=== PATIENT | male | born 1980 | race Caucasian/White ===

== ENCOUNTER 2017-05-19 10:00 | Outpatient (RCR) | payer MEDICARE, MEDICAID, SELFPAY ==
[2017-05-05 10:07] VITALS: BP 120/70; PULSE 67; RESP 18; TEMP 36.4; BMI 16.7
--- NOTE | 2017-05-05 12:07 | HP.PCM_ITS ---
(1) Autism Status: Acute Current Visit: Yes Code(s): F84.0 - Autistic disorder (2) Parkinson's disease (tremor, stiffness, slow motion, unstable posture) Status: Acute Current Visit: Yes Code(s): G20 - Parkinson's disease (3) Ataxia Status: Acute Current Visit: Yes Code(s): R27.0 - Ataxia, unspecified (4) Decubitus ulcer, stage 3 with infection Status: Acute Current Visit: Yes Code(s): L89.93 - Pressure ulcer of unspecified site, stage 3; L08.9 - Local infection of the skin and subcutaneous tissue, unspecified History of Present Illness Date of Service: 05/05/17 Chief Complaint: Follow-up on a sacral decubitus ulcer History of Wound: 37-year-old white male with a history of Parkinson's and possibly autism or that spectrum was seen by his family doctor Dr. Robyn Manjarrez in the last 2 days. Patient was referred from her about a open ulcer on his coccyx. Family has not been doing anything but what Dr. Manjarrez told him to do. Patient does speak but very difficult to understand. Does like playing on computers. Mom states does not use a Roho cushion or low air loss mattress. Patient usually she says sits in his sling wheelchair or on the floor are in his lounge chair. She is currently on medications for for Parkinson's. Patient has had a weight loss of 30 pounds in the last 2 years. He is very bony over his hips elbows and pelvis Past Medical History Past Medical History: Parkinson's questionable autistic spectrum decubitus ulcer stage III coccyx Lives: With Family Smoking Status: Never smoker Tobacco Use: Non-smoker Alcohol: None Drugs: None Review of Systems Constitutional: Denies: Chills, Fever Eyes: Denies: Blurred vision, Drainage, Pain HEENT: Denies: Difficulty Hearing, Difficulty Swallowing, Sore Throat, Visual Changes Cardiovascular: Denies: Chest Pain, Palpitations, Syncope Respiratory: Denies: Cough, Shortness of Breath Gastrointestinal: Denies: Abdominal Pain, Nausea, Vomiting Genitourinary: Denies: Dysuria, Frequency Musculoskeletal: Denies: Joint Pain, Muscle pain Skin: Reports: Wounds - Coccyx wounds, -. Denies: Jaundice, Rash Neurological: Denies: Balance problems, Change in Speech, Difficulty swallowing , Focal weakness Psychiatric: Denies: Anxiety, Depression Endocrine: Denies: Change in Body Habitus Hematologic/ Lymphatic: Denies: Adenopathy - Physical Exam Vital Signs Temp Pulse Resp BP 97.5 F L 67 18 120/70 05/05/17 10:07 05/05/17 10:07 05/05/17 10:07 05/05/17 10:07 General: Oriented x3, Cooperative, Well developed HEENT: Atraumatic, PERRLA Oral: Moist Mucosa Neck: Supple, No JVD Lungs: Clear to auscultation, Normal air movement Cardiovascular: Regular rate, Regular Rhythm Abdomen: Bowel Sounds Present, Soft, Non Tender, No Hepato-splenomegaly Extremities: No clubbing, No edema Skin: - - Coccyx decubitus ulcer stage III Wound Measurements and Assessment WC - Nurse 1 - General Ulcer Measurement Start: 05/05/17 10:07 Freq: Status: Active Protocol: Activity Type Activity Date Activity User E-Sign Co-Sign Detail Recorded Client Recorded Date Recorded By Document 05/05/17 10:07 DV [id number] 05/05/17 10:50 DV 05/05/17 10:07 Wound Center Nurse 1 [Ulcer Assessment Protocol: WC.WD.LOC] #1 Right Sacrum -Combined with other wound No -Current Size (cm) - Length 2.0 -Current Size (cm) - Width 1.5 -Current Size (cm) - Depth 0.3 -Total Square Cm 3.00 -Date of Last Picture (Recall this 05/05/17 field) -Photo Taken Yes -Epithelialization None Present -Tunneling No -Undermining/Tunneling No -Circular Undermining No -Classification - Thickness Full Thickness without Exposed Support Structure -Exudate Amt Small (1-33%) -Exudate Type Serosanguineous -Wound Margin Distinct, Outline Attached -Granulation Quality N/A -Slough/Fibrin No -Necrosis Amt Large (67-100%) -Necrotic Tissue Type Adherent Slough -Structure Exposed None/Limited to Skin Breakdown -Texture (Fany-wound Skin Appearance) No Abnormality Assessed -Moisture (Fany-wound Skin Appearance No Abnormality ) Assessed -Color (Fany-wound Skin Appearance) No Abnormality Assessed -Temperature (Fany-wound Skin No Abnormality Appearance) (Pt Warm) -Tenderness on Palpation (Fany-wound Yes: slightly Skin Appearance) -Ulcer Cleansing Rinsed/ Irrigated with Saline -Foul Odor after Cleansing No -Anesthetic Used 5% Lidocaine Gel WC - Nurse 2 - General Ulcer CM Notes Start: 05/05/17 10:07 Freq: Status: Active Protocol: Activity Type Activity Date Activity User E-Sign Co-Sign Detail Recorded Client Recorded Date Recorded By Document 05/05/17 11:19 MW [id number] 05/05/17 11:30 MW 05/05/17 11:19 Wound Center Nurse 2 [Procedure/Treatment] -Time 11:19 -Correct Patient Yes -Correct Side, Site, Position Yes -Correct Procedure Yes -Procedure Performed Yes -Type of Procedure Debridement -Clinical Debridement Subcutaneous -Post Debridement Size (cm) - Length 1.7 -Post Debridement Size (cm) - Width 1.5 -Post Debridement Size (cm) - Depth 0.2 -Total Square Cm 2.55 -Wound/Ulcer Outcome Not Healed -Ulcer Cleansing Rinsed/ Irrigated with Saline -Foul Odor after Cleansing No -Bioengineered Tissue No -Cetacaine [place] No -Bleeding Controlled with Pressure -Treatment Response Procedure Tolerated Well [See Physician Procedure note for Specifics] Pain Scale: 0-10 Numeric [Pain] -Is Patient Pain Free? Yes Musculoskeletal: No Tenderness to Palpation of Joints or Extremities Lymphatic: No Cervical, Supraclavicular, or Inguinal Adenopathy Neurological: Cranial nerves II-XII grossly intact, Neuro grossly intact Psych/Mental Status: Normal Affect, Appropriate Debridement Note Post-Debridement Measurements/Treatment WC - Nurse 2 - General Ulcer CM Notes Start: 05/05/17 10:07 Freq: Status: Active Protocol: Activity Type Activity Date Activity User E-Sign Co-Sign Detail Recorded Client Recorded Date Recorded By Document 05/05/17 11:19 MW [id number] 05/05/17 11:30 MW 05/05/17 11:19 Wound Center Nurse 2 #1 Right Sacrum -Time 11:19 -Correct Patient Yes -Correct Side, Site, Position Yes -Correct Procedure Yes -Procedure Performed Yes -Type of Procedure Debridement -Clinical Debridement Subcutaneous -Post Debridement Size (cm) - Length 1.7 -Post Debridement Size (cm) - Width 1.5 -Post Debridement Size (cm) - Depth 0.2 -Total Square Cm 2.55 -Wound/Ulcer Outcome Not Healed -Ulcer Cleansing Rinsed/ Irrigated with Saline -Foul Odor after Cleansing No -Bioengineered Tissue No -Cetacaine [place] No -Bleeding Controlled with Pressure -Treatment Response Procedure Tolerated Well Pain Scale: 0-10 Numeric Is Patient Pain Free? Yes Wound debrided: Coccyx ulcer Wound Grade/Stage: Stage III Type of Debridement: Excisional debridement Anesthesia Used: 5% Lidocaine Gel Depth: Down to and including healthy tissue, in the subcutaneous layer Instrument Used: 3mm curette, - - Uppers Tissue Removed: Slough and fibrin and devitalized tissue Severity: Limited To Skin Breakdown Amount of bleeding with debridement: Mild Bleeding Controlled with: Compression and gauze Patient tolerated procedure well Assessment/Plan Lab work CBC with differential and a pre-albumin Active Problems Autism (Acute) Parkinson's disease (tremor, stiffness, slow motion, unstable posture) (Acute) Ataxia (Acute) Decubitus ulcer, stage 3 with infection (Acute) Assessment: Decubitus ulcer stage III coccyx. Parkinson's. Malnutrition. Infected ulcer. Possibly autistic Plan: Wash area with Hibiclens. Apply Aquacel silver to the area moistened. Cover with gauze and tape. Follow-up in 1 week. Obtain Roho cushion and low air mattress
[2017-05-05 15:46] LABS: Absolute Lymphocyte Count 1.27 X10^3/ul (0.83-4.51); Absolute Neutrophil Count 3.6 X10^3/uL (2.0-7.7); Basophil# 0.01 X10^3/uL; Basophil% 0.2 % (0-1); Eosinophil# 0.06 X10^3/uL; Eosinophils% 1.1 % (0-5); Hematocrit 40.9 % (40-54); Hemoglobin 13.2 g/dl (13.0-16.5); Lymphocyte # 1.27 X10^3/ul (4.0); Lymphocyte % 23.1 % (19-41); Mean Corp Hgb Conc 32.3 g/gl (32-36); Mean Corpuscular Hgb 29.1 pg (27.0-32.0); Mean Corpuscular Volume 90.1 fL (80-94); Mean Platelet Vol. 8.3 fl (6.2-12.0); Monocyte# 0.52 X10^3/uL; Monocyte% 9.5 % (0-10); Neutrophil # 3.64 X10^3/uL (2.7-7.7); Neutrophil % 66.1 % (47-70); Platelet Count 339 K/mm3 (150-450); RBC Distribution Width CV 13.5 % (11.6-14.6); RBC Distribution Width SD 44.3 fl (35.1-43.9); Red Blood Count 4.54 M/mm3 (4.6-6.2); White Blood Count 5.5 K/mm3 (4.4-11.0)
[2017-05-05 15:49] LABS: POSITIVE COUNT NO; POSITIVE DIFFERENTIAL NO; POSITIVE MORPHOLOGY NO
[2017-05-05 15:55] LABS: Prealbumin 27.2 mg/dL (20.0-40.0)
[2017-05-12 10:05] VITALS: BP 118/94; PULSE 94; RESP 16; TEMP 37.3; BMI 16.7
--- NOTE | 2017-05-12 12:20 | PCM.WC.PN ---
(1) Autism Status: Acute Current Visit: Yes Code(s): F84.0 - Autistic disorder (2) Parkinson's disease (tremor, stiffness, slow motion, unstable posture) Status: Acute Current Visit: Yes Code(s): G20 - Parkinson's disease (3) Ataxia Status: Acute Current Visit: Yes Code(s): R27.0 - Ataxia, unspecified (4) Decubitus ulcer, stage 3 with infection Status: Acute Current Visit: Yes Code(s): L89.93 - Pressure ulcer of unspecified site, stage 3; L08.9 - Local infection of the skin and subcutaneous tissue, unspecified Type of Wound Date of Service: 05/12/17 Chief Complaint: Follow-up on a sacral decubitus ulcer History of Wound: 37-year-old white male with a history of Parkinson's and possibly autism or that spectrum was seen by his family doctor Dr. Robyn Manjarrez in the last 2 days. Patient was referred from her about a open ulcer on his coccyx. Family has not been doing anything but what Dr. Manjarrez told him to do. Patient does speak but very difficult to understand. Does like playing on computers. Mom states does not use a Roho cushion or low air loss mattress. Patient usually she says sits in his sling wheelchair or on the floor are in his lounge chair. She is currently on medications for for Parkinson's. Patient has had a weight loss of 30 pounds in the last 2 years. He is very bony over his hips elbows and pelvis Progress of Wound: Today the ulcer is slightly bigger but shallower. Tolerating wound care well. Tolerating Aquacel silver moistened with Adaptic over top keeping the ulcer clean. Nipped out some areas of raised skin-like islands in the middle of the ulcer. - Physical Exam Vital Signs Temp Pulse Resp BP 99.1 F 94 16 118/94 H 05/12/17 10:05 05/12/17 10:05 05/12/17 10:05 05/12/17 10:05 General: Cooperative, Well nourished HEENT: Atraumatic, PERRLA Oral: Moist Mucosa Neck: Supple, No JVD Lungs: Clear to auscultation, Normal air movement Cardiovascular: Regular rate, Regular Rhythm Abdomen: Bowel Sounds Present, Soft, Non Tender, No Hepato-splenomegaly Extremities: No clubbing, No edema Skin: - - Coccyx ulcer stage II Wound Measurements and Assessment - Nurse 1 - General Ulcer Measurement Start: 05/05/17 10:07 Freq: Status: Active Protocol: Activity Type Activity Date Activity User E-Sign Co-Sign Detail Recorded Client Recorded Date Recorded By Document 05/12/17 10:05 [facility] [id number] 05/12/17 10:15 [facility] 05/12/17 10:05 Wound Center Nurse 1 [Ulcer Assessment Protocol: SANDRA.WD.LOC] #1 Right Sacrum -Combined with other wound No -Current Size (cm) - Length 1.7 -Current Size (cm) - Width 1.5 -Current Size (cm) - Depth 0.2 -Total Square Cm 2.55 -Photo Taken No -Tunneling No -Undermining/Tunneling No -Exudate Amt Small (1-33%) -Exudate Type Serosanguineous -Wound Margin Distinct, Outline Attached -Granulation Amt Small (1-33%) -Granulation Quality Red -Slough/Fibrin Yes -Necrosis Amt Large (67-100%) -Necrotic Tissue Type Adherent Slough -Structure Exposed None/Limited to Skin Breakdown -Texture (Fany-wound Skin Appearance) Scarring -Moisture (Fany-wound Skin Appearance Assessed ) -Color (Fany-wound Skin Appearance) Erythema -Temperature (Fany-wound Skin No Abnormality Appearance) (Pt Warm) -Ulcer Cleansing Rinsed/ Irrigated with Saline -Foul Odor after Cleansing No -Anesthetic Used 5% Lidocaine Gel - Nurse 2 - General Ulcer CM Notes Start: 05/05/17 10:07 Freq: Status: Active Protocol: Activity Type Activity Date Activity User E-Sign Co-Sign Detail Recorded Client Recorded Date Recorded By Document 05/12/17 10:23 MW [id number] 05/12/17 10:27 MW 05/12/17 10:23 Wound Center Nurse 2 [Procedure/Treatment] -Time 10:24 -Correct Patient Yes -Correct Side, Site, Position Yes -Correct Procedure Yes -Procedure Performed Yes -Type of Procedure Debridement -Clinical Debridement Subcutaneous -Post Debridement Size (cm) - Length 1.7 -Post Debridement Size (cm) - Width 1.8 -Post Debridement Size (cm) - Depth 0.2 -Total Square Cm 3.06 -Wound/Ulcer Outcome Not Healed -Ulcer Cleansing Rinsed/ Irrigated with Saline -Foul Odor after Cleansing No -Bioengineered Tissue No -Cetacaine [place] No -Bleeding Controlled with Pressure -Treatment Response Procedure Tolerated Well [See Physician Procedure note for Specifics] Pain Scale: 0-10 Numeric [Pain] -Is Patient Pain Free? Yes Musculoskeletal: No Tenderness to Palpation of Joints or Extremities Lymphatic: No Cervical, Supraclavicular, or Inguinal Adenopathy Neurological: Cranial nerves II-XII grossly intact, Neuro grossly intact Psych/Mental Status: Normal Affect, Appropriate, Alert and oriented to time, place, person, mood and affect Debridement Note Post-Debridement Measurements/Treatment WC - Nurse 2 - General Ulcer CM Notes Start: 05/05/17 10:07 Freq: Status: Active Protocol: Activity Type Activity Date Activity User E-Sign Co-Sign Detail Recorded Client Recorded Date Recorded By Document 05/05/17 11:19 MW [id number] 05/05/17 11:30 MW Document 05/12/17 10:23 MW [id number] 05/12/17 10:27 MW 05/05/17 05/12/17 11:19 10:23 Wound Center Nurse 2 #1 Right Sacrum -Time 11:19 10:24 -Correct Patient Yes Yes -Correct Side, Site, Position Yes Yes -Correct Procedure Yes Yes -Procedure Performed Yes Yes -Type of Procedure Debridement Debridement -Clinical Debridement Subcutaneous Subcutaneous -Post Debridement Size (cm) - Length 1.7 1.7 -Post Debridement Size (cm) - Width 1.5 1.8 -Post Debridement Size (cm) - Depth 0.2 0.2 -Total Square Cm 2.55 3.06 -Wound/Ulcer Outcome Not Healed Not Healed -Ulcer Cleansing Rinsed/ Rinsed/ Irrigated with Irrigated with Saline Saline -Foul Odor after Cleansing No No -Bioengineered Tissue No No -Cetacaine [place] No No -Bleeding Controlled with Pressure Pressure -Treatment Response Procedure Procedure Tolerated Well Tolerated Well Pain Scale: 0-10 Numeric Is Patient Pain Free? Yes Yes Wound debrided: Coccyx ulcer Wound Grade/Stage: Stage II Type of Debridement: Excisional debridement Anesthesia Used: 5% Lidocaine Gel Depth: Down to and including healthy tissue, in the subcutaneous layer, to muscle Percentage of wound debrided: 100 Instrument Used: 5mm curette, - - Uppers Tissue Removed: Fibrin Severity: Limited To Skin Breakdown Amount of bleeding with debridement: Mild Bleeding Controlled with: Compression and gauze Patient tolerated procedure well Assessment/Plan Active Problems Autism (Acute) Parkinson's disease (tremor, stiffness, slow motion, unstable posture) (Acute) Ataxia (Acute) Decubitus ulcer, stage 3 with infection (Acute) Assessment: Decubitus ulcer stage III coccyx. Parkinson's. Malnutrition. Infected ulcer. Possibly autistic Plan: Wash area with Hibiclens. Apply Aquacel silver to the area moistened. Cover with gauze and tape. Follow-up in 1 week. Obtain Roho cushion and low air mattress
--- NOTE | 2017-05-12 12:23 | PN.PCM_ITS ---
(1) Autism Status: Acute Current Visit: Yes Code(s): F84.0 - Autistic disorder (2) Parkinson's disease (tremor, stiffness, slow motion, unstable posture) Status: Acute Current Visit: Yes Code(s): G20 - Parkinson's disease (3) Ataxia Status: Acute Current Visit: Yes Code(s): R27.0 - Ataxia, unspecified (4) Decubitus ulcer, stage 3 with infection Status: Acute Current Visit: Yes Code(s): L89.93 - Pressure ulcer of unspecified site, stage 3; L08.9 - Local infection of the skin and subcutaneous tissue, unspecified Type of Wound Date of Service: 05/12/17 Chief Complaint: Follow-up on a sacral decubitus ulcer History of Wound: 37-year-old white male with a history of Parkinson's and possibly autism or that spectrum was seen by his family doctor Dr. Robyn Manjarrez in the last 2 days. Patient was referred from her about a open ulcer on his coccyx. Family has not been doing anything but what Dr. Manjarrez told him to do. Patient does speak but very difficult to understand. Does like playing on computers. Mom states does not use a Roho cushion or low air loss mattress. Patient usually she says sits in his sling wheelchair or on the floor are in his lounge chair. She is currently on medications for for Parkinson's. Patient has had a weight loss of 30 pounds in the last 2 years. He is very bony over his hips elbows and pelvis Progress of Wound: Today the ulcer is slightly bigger but shallower. Tolerating wound care well. Tolerating Aquacel silver moistened with Adaptic over top keeping the ulcer clean. Nipped out some areas of raised skin-like islands in the middle of the ulcer. - Physical Exam Vital Signs Temp Pulse Resp BP 99.1 F 94 16 118/94 H 05/12/17 10:05 05/12/17 10:05 05/12/17 10:05 05/12/17 10:05 General: Cooperative, Well nourished HEENT: Atraumatic, PERRLA Oral: Moist Mucosa Neck: Supple, No JVD Lungs: Clear to auscultation, Normal air movement Cardiovascular: Regular rate, Regular Rhythm Abdomen: Bowel Sounds Present, Soft, Non Tender, No Hepato-splenomegaly Extremities: No clubbing, No edema Skin: - - Coccyx ulcer stage II Wound Measurements and Assessment - Nurse 1 - General Ulcer Measurement Start: 05/05/17 10:07 Freq: Status: Active Protocol: Activity Type Activity Date Activity User E-Sign Co-Sign Detail Recorded Client Recorded Date Recorded By Document 05/12/17 10:05 [facility] [id number] 05/12/17 10:15 [facility] 05/12/17 10:05 Wound Center Nurse 1 [Ulcer Assessment Protocol: SANDRA.WD.LOC] #1 Right Sacrum -Combined with other wound No -Current Size (cm) - Length 1.7 -Current Size (cm) - Width 1.5 -Current Size (cm) - Depth 0.2 -Total Square Cm 2.55 -Photo Taken No -Tunneling No -Undermining/Tunneling No -Exudate Amt Small (1-33%) -Exudate Type Serosanguineous -Wound Margin Distinct, Outline Attached -Granulation Amt Small (1-33%) -Granulation Quality Red -Slough/Fibrin Yes -Necrosis Amt Large (67-100%) -Necrotic Tissue Type Adherent Slough -Structure Exposed None/Limited to Skin Breakdown -Texture (Fany-wound Skin Appearance) Scarring -Moisture (Fany-wound Skin Appearance Assessed ) -Color (Fany-wound Skin Appearance) Erythema -Temperature (Fany-wound Skin No Abnormality Appearance) (Pt Warm) -Ulcer Cleansing Rinsed/ Irrigated with Saline -Foul Odor after Cleansing No -Anesthetic Used 5% Lidocaine Gel - Nurse 2 - General Ulcer CM Notes Start: 05/05/17 10:07 Freq: Status: Active Protocol: Activity Type Activity Date Activity User E-Sign Co-Sign Detail Recorded Client Recorded Date Recorded By Document 05/12/17 10:23 MW [id number] 05/12/17 10:27 MW 05/12/17 10:23 Wound Center Nurse 2 [Procedure/Treatment] -Time 10:24 -Correct Patient Yes -Correct Side, Site, Position Yes -Correct Procedure Yes -Procedure Performed Yes -Type of Procedure Debridement -Clinical Debridement Subcutaneous -Post Debridement Size (cm) - Length 1.7 -Post Debridement Size (cm) - Width 1.8 -Post Debridement Size (cm) - Depth 0.2 -Total Square Cm 3.06 -Wound/Ulcer Outcome Not Healed -Ulcer Cleansing Rinsed/ Irrigated with Saline -Foul Odor after Cleansing No -Bioengineered Tissue No -Cetacaine [place] No -Bleeding Controlled with Pressure -Treatment Response Procedure Tolerated Well [See Physician Procedure note for Specifics] Pain Scale: 0-10 Numeric [Pain] -Is Patient Pain Free? Yes Musculoskeletal: No Tenderness to Palpation of Joints or Extremities Lymphatic: No Cervical, Supraclavicular, or Inguinal Adenopathy Neurological: Cranial nerves II-XII grossly intact, Neuro grossly intact Psych/Mental Status: Normal Affect, Appropriate, Alert and oriented to time, place, person, mood and affect Debridement Note Post-Debridement Measurements/Treatment WC - Nurse 2 - General Ulcer CM Notes Start: 05/05/17 10:07 Freq: Status: Active Protocol: Activity Type Activity Date Activity User E-Sign Co-Sign Detail Recorded Client Recorded Date Recorded By Document 05/05/17 11:19 MW [id number] 05/05/17 11:30 MW Document 05/12/17 10:23 MW [id number] 05/12/17 10:27 MW 05/05/17 05/12/17 11:19 10:23 Wound Center Nurse 2 #1 Right Sacrum -Time 11:19 10:24 -Correct Patient Yes Yes -Correct Side, Site, Position Yes Yes -Correct Procedure Yes Yes -Procedure Performed Yes Yes -Type of Procedure Debridement Debridement -Clinical Debridement Subcutaneous Subcutaneous -Post Debridement Size (cm) - Length 1.7 1.7 -Post Debridement Size (cm) - Width 1.5 1.8 -Post Debridement Size (cm) - Depth 0.2 0.2 -Total Square Cm 2.55 3.06 -Wound/Ulcer Outcome Not Healed Not Healed -Ulcer Cleansing Rinsed/ Rinsed/ Irrigated with Irrigated with Saline Saline -Foul Odor after Cleansing No No -Bioengineered Tissue No No -Cetacaine [place] No No -Bleeding Controlled with Pressure Pressure -Treatment Response Procedure Procedure Tolerated Well Tolerated Well Pain Scale: 0-10 Numeric Is Patient Pain Free? Yes Yes Wound debrided: Coccyx ulcer Wound Grade/Stage: Stage II Type of Debridement: Excisional debridement Anesthesia Used: 5% Lidocaine Gel Depth: Down to and including healthy tissue, in the subcutaneous layer, to muscle Percentage of wound debrided: 100 Instrument Used: 5mm curette, - - Uppers Tissue Removed: Fibrin Severity: Limited To Skin Breakdown Amount of bleeding with debridement: Mild Bleeding Controlled with: Compression and gauze Patient tolerated procedure well Assessment/Plan Active Problems Autism (Acute) Parkinson's disease (tremor, stiffness, slow motion, unstable posture) (Acute) Ataxia (Acute) Decubitus ulcer, stage 3 with infection (Acute) Assessment: Decubitus ulcer stage III coccyx. Parkinson's. Malnutrition. Infected ulcer. Possibly autistic Plan: Wash area with Hibiclens. Apply Aquacel silver to the area moistened. Cover with gauze and tape. Follow-up in 1 week. Obtain Roho cushion and low air mattress
[2017-05-19 09:56] VITALS: BP 118/80; PULSE 87; RESP 18; TEMP 36; BMI 16.7
--- NOTE | 2017-05-19 11:06 | PCM.WC.PN ---
(1) Autism Status: Acute Current Visit: Yes Code(s): F84.0 - Autistic disorder (2) Parkinson's disease (tremor, stiffness, slow motion, unstable posture) Status: Acute Current Visit: Yes Code(s): G20 - Parkinson's disease (3) Ataxia Status: Acute Current Visit: Yes Code(s): R27.0 - Ataxia, unspecified (4) Decubitus ulcer, stage 3 with infection Status: Acute Current Visit: Yes Code(s): L89.93 - Pressure ulcer of unspecified site, stage 3; L08.9 - Local infection of the skin and subcutaneous tissue, unspecified Type of Wound Date of Service: 05/19/17 Chief Complaint: Follow-up on a sacral decubitus ulcer History of Wound: 37-year-old white male with a history of Parkinson's and possibly autism or that spectrum was seen by his family doctor Dr. Robyn Manjarrez in the last 2 days. Patient was referred from her about a open ulcer on his coccyx. Family has not been doing anything but what Dr. Manjarrez told him to do. Patient does speak but very difficult to understand. Does like playing on computers. Mom states does not use a Roho cushion or low air loss mattress. Patient usually she says sits in his sling wheelchair or on the floor are in his lounge chair. She is currently on medications for for Parkinson's. Patient has had a weight loss of 30 pounds in the last 2 years. He is very bony over his hips elbows and pelvis Progress of Wound: Today the ulcer is smaller and shallower. Tolerating wound care well. Tolerating Aquacel silver moistened with Adaptic over top keeping the ulcer clean. Nipped out some areas of raised skin-like islands in the middle of the ulcer. Tolerating dressing changes. - Physical Exam Vital Signs Temp Pulse Resp BP 96.8 F L 87 18 118/80 05/19/17 09:56 05/19/17 09:56 05/19/17 09:56 05/19/17 09:56 General: Oriented x3, Cooperative, Well developed HEENT: Atraumatic, PERRLA Oral: Moist Mucosa Neck: Supple, No JVD Lungs: Clear to auscultation, Normal air movement Cardiovascular: Regular rate, Regular Rhythm Abdomen: Bowel Sounds Present, Soft, Non Tender, No Hepato-splenomegaly Extremities: No clubbing, No edema Skin: - - Coccyx ulcer stage III Wound Measurements and Assessment - Nurse 1 - General Ulcer Measurement Start: 05/05/17 10:07 Freq: Status: Active Protocol: Activity Type Activity Date Activity User E-Sign Co-Sign Detail Recorded Client Recorded Date Recorded By Document 05/19/17 09:56 DL [id number] 05/19/17 10:03 DL 05/19/17 09:56 Wound Center Nurse 1 [Ulcer Assessment Protocol: SANDRA.WD.LOC] #1 Right Sacrum -Current Size (cm) - Length 1.3 -Current Size (cm) - Width 1.3 -Current Size (cm) - Depth 0.2 -Total Square Cm 1.69 -Photo Taken No -Exudate Amt Small (1-33%) -Exudate Type Serosanguineous -Wound Margin Thickened -Granulation Amt Small (1-33%) -Granulation Quality [place] -Necrosis Amt Small (1-33%) -Necrotic Tissue Type Adherent Slough -Structure Exposed N/A -Texture (Fany-wound Skin Appearance) Scarring -Moisture (Fany-wound Skin Appearance Maceration ) -Color (Fany-wound Skin Appearance) No Abnormality -Temperature (Fany-wound Skin No Abnormality Appearance) (Pt Warm) -Ulcer Cleansing Rinsed/ Irrigated with Saline -Foul Odor after Cleansing No -Anesthetic Used 4% Lidocaine Solution - Nurse 2 - General Ulcer CM Notes Start: 05/05/17 10:07 Freq: Status: Active Protocol: Activity Type Activity Date Activity User E-Sign Co-Sign Detail Recorded Client Recorded Date Recorded By Document 05/19/17 10:13 MW [id number] 05/19/17 10:17 MW 05/19/17 10:13 Wound Center Nurse 2 [Procedure/Treatment] -Time 10:14 -Correct Patient Yes -Correct Side, Site, Position Yes -Correct Procedure Yes -Procedure Performed Yes -Type of Procedure Debridement -Clinical Debridement Subcutaneous -Post Debridement Size (cm) - Length 1.2 -Post Debridement Size (cm) - Width 1.4 -Post Debridement Size (cm) - Depth 0.2 -Total Square Cm 1.68 -Wound/Ulcer Outcome Not Healed -Ulcer Cleansing Rinsed/ Irrigated with Saline -Foul Odor after Cleansing No -Bioengineered Tissue No -Cetacaine [place] No -Bleeding Controlled with Pressure -Treatment Response Procedure Tolerated Well [See Physician Procedure note for Specifics] Pain Scale: 0-10 Numeric [Pain] -Is Patient Pain Free? Yes Musculoskeletal: No Tenderness to Palpation of Joints or Extremities Lymphatic: No Cervical, Supraclavicular, or Inguinal Adenopathy Neurological: Cranial nerves II-XII grossly intact, Neuro grossly intact Psych/Mental Status: Normal Affect, Appropriate Debridement Note Post-Debridement Measurements/Treatment WC - Nurse 2 - General Ulcer CM Notes Start: 05/05/17 10:07 Freq: Status: Active Protocol: Activity Type Activity Date Activity User E-Sign Co-Sign Detail Recorded Client Recorded Date Recorded By Document 05/05/17 11:19 MW [id number] 05/05/17 11:30 MW Document 05/12/17 10:23 MW [id number] 05/12/17 10:27 MW Document 05/19/17 10:13 MW [id number] 05/19/17 10:17 MW 05/05/17 05/12/17 05/19/17 11:19 10:23 10:13 Wound Center Nurse 2 #1 Right Sacrum -Time 11:19 10:24 10:14 -Correct Patient Yes Yes Yes -Correct Side, Site, Position Yes Yes Yes -Correct Procedure Yes Yes Yes -Procedure Performed Yes Yes Yes -Type of Procedure Debridement Debridement Debridement -Clinical Debridement Subcutaneous Subcutaneous Subcutaneous -Post Debridement Size (cm) - Length 1.7 1.7 1.2 -Post Debridement Size (cm) - Width 1.5 1.8 1.4 -Post Debridement Size (cm) - Depth 0.2 0.2 0.2 -Total Square Cm 2.55 3.06 1.68 -Wound/Ulcer Outcome Not Healed Not Healed Not Healed -Ulcer Cleansing Rinsed/ Rinsed/ Rinsed/ Irrigated with Irrigated with Irrigated with Saline Saline Saline -Foul Odor after Cleansing No No No -Bioengineered Tissue No No No -Cetacaine [place] No No No -Bleeding Controlled with Pressure Pressure Pressure -Treatment Response Procedure Procedure Procedure Tolerated Well Tolerated Well Tolerated Well Pain Scale: 0-10 Numeric Is Patient Pain Free? Yes Yes Yes Wound debrided: Coccyx ulcer Wound Grade/Stage: Page 3 Type of Debridement: Excisional debridement Anesthesia Used: 5% Lidocaine Gel Depth: Down to and including healthy tissue, in the subcutaneous layer Percentage of wound debrided: 100 Instrument Used: 5mm curette, - - Uppers Tissue Removed: Devitalized tissue and fibrin Severity: Limited To Skin Breakdown Amount of bleeding with debridement: Mild Bleeding Controlled with: Compression and gauze Patient tolerated procedure well Assessment/Plan Active Problems Autism (Acute) Parkinson's disease (tremor, stiffness, slow motion, unstable posture) (Acute) Ataxia (Acute) Decubitus ulcer, stage 3 with infection (Acute) Assessment: Decubitus ulcer stage III coccyx. Parkinson's. Malnutrition. Infected ulcer. Possibly autistic Plan: Wash area with Hibiclens. Apply Dermagran moistened to the area. Cover with Adaptic gauze and tape every day. Follow-up in 1 week. Obtain Roho cushion and low air mattress
--- NOTE | 2017-05-19 11:11 | PN.PCM_ITS ---
(1) Autism Status: Acute Current Visit: Yes Code(s): F84.0 - Autistic disorder (2) Parkinson's disease (tremor, stiffness, slow motion, unstable posture) Status: Acute Current Visit: Yes Code(s): G20 - Parkinson's disease (3) Ataxia Status: Acute Current Visit: Yes Code(s): R27.0 - Ataxia, unspecified (4) Decubitus ulcer, stage 3 with infection Status: Acute Current Visit: Yes Code(s): L89.93 - Pressure ulcer of unspecified site, stage 3; L08.9 - Local infection of the skin and subcutaneous tissue, unspecified Type of Wound Date of Service: 05/19/17 Chief Complaint: Follow-up on a sacral decubitus ulcer History of Wound: 37-year-old white male with a history of Parkinson's and possibly autism or that spectrum was seen by his family doctor Dr. Robyn Manjarrez in the last 2 days. Patient was referred from her about a open ulcer on his coccyx. Family has not been doing anything but what Dr. Manjarrez told him to do. Patient does speak but very difficult to understand. Does like playing on computers. Mom states does not use a Roho cushion or low air loss mattress. Patient usually she says sits in his sling wheelchair or on the floor are in his lounge chair. She is currently on medications for for Parkinson's. Patient has had a weight loss of 30 pounds in the last 2 years. He is very bony over his hips elbows and pelvis Progress of Wound: Today the ulcer is smaller and shallower. Tolerating wound care well. Tolerating Aquacel silver moistened with Adaptic over top keeping the ulcer clean. Nipped out some areas of raised skin-like islands in the middle of the ulcer. Tolerating dressing changes. - Physical Exam Vital Signs Temp Pulse Resp BP 96.8 F L 87 18 118/80 05/19/17 09:56 05/19/17 09:56 05/19/17 09:56 05/19/17 09:56 General: Oriented x3, Cooperative, Well developed HEENT: Atraumatic, PERRLA Oral: Moist Mucosa Neck: Supple, No JVD Lungs: Clear to auscultation, Normal air movement Cardiovascular: Regular rate, Regular Rhythm Abdomen: Bowel Sounds Present, Soft, Non Tender, No Hepato-splenomegaly Extremities: No clubbing, No edema Skin: - - Coccyx ulcer stage III Wound Measurements and Assessment - Nurse 1 - General Ulcer Measurement Start: 05/05/17 10:07 Freq: Status: Active Protocol: Activity Type Activity Date Activity User E-Sign Co-Sign Detail Recorded Client Recorded Date Recorded By Document 05/19/17 09:56 DL [id number] 05/19/17 10:03 DL 05/19/17 09:56 Wound Center Nurse 1 [Ulcer Assessment Protocol: SANDRA.WD.LOC] #1 Right Sacrum -Current Size (cm) - Length 1.3 -Current Size (cm) - Width 1.3 -Current Size (cm) - Depth 0.2 -Total Square Cm 1.69 -Photo Taken No -Exudate Amt Small (1-33%) -Exudate Type Serosanguineous -Wound Margin Thickened -Granulation Amt Small (1-33%) -Granulation Quality [place] -Necrosis Amt Small (1-33%) -Necrotic Tissue Type Adherent Slough -Structure Exposed N/A -Texture (Fany-wound Skin Appearance) Scarring -Moisture (Fany-wound Skin Appearance Maceration ) -Color (Fany-wound Skin Appearance) No Abnormality -Temperature (Fany-wound Skin No Abnormality Appearance) (Pt Warm) -Ulcer Cleansing Rinsed/ Irrigated with Saline -Foul Odor after Cleansing No -Anesthetic Used 4% Lidocaine Solution - Nurse 2 - General Ulcer CM Notes Start: 05/05/17 10:07 Freq: Status: Active Protocol: Activity Type Activity Date Activity User E-Sign Co-Sign Detail Recorded Client Recorded Date Recorded By Document 05/19/17 10:13 MW [id number] 05/19/17 10:17 MW 05/19/17 10:13 Wound Center Nurse 2 [Procedure/Treatment] -Time 10:14 -Correct Patient Yes -Correct Side, Site, Position Yes -Correct Procedure Yes -Procedure Performed Yes -Type of Procedure Debridement -Clinical Debridement Subcutaneous -Post Debridement Size (cm) - Length 1.2 -Post Debridement Size (cm) - Width 1.4 -Post Debridement Size (cm) - Depth 0.2 -Total Square Cm 1.68 -Wound/Ulcer Outcome Not Healed -Ulcer Cleansing Rinsed/ Irrigated with Saline -Foul Odor after Cleansing No -Bioengineered Tissue No -Cetacaine [place] No -Bleeding Controlled with Pressure -Treatment Response Procedure Tolerated Well [See Physician Procedure note for Specifics] Pain Scale: 0-10 Numeric [Pain] -Is Patient Pain Free? Yes Musculoskeletal: No Tenderness to Palpation of Joints or Extremities Lymphatic: No Cervical, Supraclavicular, or Inguinal Adenopathy Neurological: Cranial nerves II-XII grossly intact, Neuro grossly intact Psych/Mental Status: Normal Affect, Appropriate Debridement Note Post-Debridement Measurements/Treatment WC - Nurse 2 - General Ulcer CM Notes Start: 05/05/17 10:07 Freq: Status: Active Protocol: Activity Type Activity Date Activity User E-Sign Co-Sign Detail Recorded Client Recorded Date Recorded By Document 05/05/17 11:19 MW [id number] 05/05/17 11:30 MW Document 05/12/17 10:23 MW [id number] 05/12/17 10:27 MW Document 05/19/17 10:13 MW [id number] 05/19/17 10:17 MW 05/05/17 05/12/17 05/19/17 11:19 10:23 10:13 Wound Center Nurse 2 #1 Right Sacrum -Time 11:19 10:24 10:14 -Correct Patient Yes Yes Yes -Correct Side, Site, Position Yes Yes Yes -Correct Procedure Yes Yes Yes -Procedure Performed Yes Yes Yes -Type of Procedure Debridement Debridement Debridement -Clinical Debridement Subcutaneous Subcutaneous Subcutaneous -Post Debridement Size (cm) - Length 1.7 1.7 1.2 -Post Debridement Size (cm) - Width 1.5 1.8 1.4 -Post Debridement Size (cm) - Depth 0.2 0.2 0.2 -Total Square Cm 2.55 3.06 1.68 -Wound/Ulcer Outcome Not Healed Not Healed Not Healed -Ulcer Cleansing Rinsed/ Rinsed/ Rinsed/ Irrigated with Irrigated with Irrigated with Saline Saline Saline -Foul Odor after Cleansing No No No -Bioengineered Tissue No No No -Cetacaine [place] No No No -Bleeding Controlled with Pressure Pressure Pressure -Treatment Response Procedure Procedure Procedure Tolerated Well Tolerated Well Tolerated Well Pain Scale: 0-10 Numeric Is Patient Pain Free? Yes Yes Yes Wound debrided: Coccyx ulcer Wound Grade/Stage: Page 3 Type of Debridement: Excisional debridement Anesthesia Used: 5% Lidocaine Gel Depth: Down to and including healthy tissue, in the subcutaneous layer Percentage of wound debrided: 100 Instrument Used: 5mm curette, - - Uppers Tissue Removed: Devitalized tissue and fibrin Severity: Limited To Skin Breakdown Amount of bleeding with debridement: Mild Bleeding Controlled with: Compression and gauze Patient tolerated procedure well Assessment/Plan Active Problems Autism (Acute) Parkinson's disease (tremor, stiffness, slow motion, unstable posture) (Acute) Ataxia (Acute) Decubitus ulcer, stage 3 with infection (Acute) Assessment: Decubitus ulcer stage III coccyx. Parkinson's. Malnutrition. Infected ulcer. Possibly autistic Plan: Wash area with Hibiclens. Apply Dermagran moistened to the area. Cover with Adaptic gauze and tape every day. Follow-up in 1 week. Obtain Roho cushion and low air mattress
== END 2017-05-21 23:59 ==
LOC: WC 10:00
PROVIDERS: Visit Provider Nurse Practitioner
DX: L89.153 Pressure ulcer of sacral region, stage 3 (principal); R27.0 Ataxia, unspecified; G20 Parkinson's disease; F84.0 Autistic disorder
CPT/HCPCS: 11042; 84134; 85025; 99203; G0463

== ENCOUNTER 2017-06-09 09:54 | Outpatient (RCR) | payer MEDICARE, MEDICAID, SELFPAY ==
[2017-05-22 01:40] VITALS: BP 118/80; PULSE 87; RESP 18; TEMP 36; BMI 16.7
[2017-06-09 10:26] VITALS: BP 118/84; PULSE 84; RESP 16; TEMP 36.9; BMI 16.7
--- NOTE | 2017-06-09 11:18 | PCM.WC.PN ---
(1) Ataxia Status: Acute Current Visit: No Code(s): R27.0 - Ataxia, unspecified (2) Autism Status: Acute Current Visit: No Code(s): F84.0 - Autistic disorder (3) Decubitus ulcer, stage 3 with infection Status: Acute Current Visit: No Code(s): L89.93 - Pressure ulcer of unspecified site, stage 3; L08.9 - Local infection of the skin and subcutaneous tissue, unspecified (4) Parkinson's disease (tremor, stiffness, slow motion, unstable posture) Status: Acute Current Visit: No Code(s): G20 - Parkinson's disease Type of Wound Date of Service: 06/09/17 Chief Complaint: Follow-up on a sacral decubitus ulcer History of Wound: 37-year-old white male with a history of Parkinson's and possibly autism or that spectrum was seen by his family doctor Dr. Robyn Manjarrez in the last 2 days. Patient was referred from her about a open ulcer on his coccyx. Family has not been doing anything but what Dr. Manjarrez told him to do. Patient does speak but very difficult to understand. Does like playing on computers. Mom states does not use a Roho cushion or low air loss mattress. Patient usually she says sits in his sling wheelchair or on the floor are in his lounge chair. She is currently on medications for for Parkinson's. Patient has had a weight loss of 30 pounds in the last 2 years. He is very bony over his hips elbows and pelvis Progress of Wound: Today the ulcer is healed patient will be discharged from the wound center - Physical Exam Vital Signs Temp Pulse Resp BP 98.4 F 84 16 118/84 H 06/09/17 10:26 06/09/17 10:26 06/09/17 10:26 06/09/17 10:26 General: Oriented x3, Cooperative, Well developed HEENT: Atraumatic, PERRLA Oral: Moist Mucosa Neck: Supple, No JVD Lungs: Clear to auscultation, Normal air movement Cardiovascular: Regular rate, Regular Rhythm Abdomen: Bowel Sounds Present, Soft, Non Tender, No Hepato-splenomegaly Extremities: No clubbing, No edema Skin: - - Right sacrum ulcer Wound Measurements and Assessment WC - Nurse 1 - General Ulcer Measurement Start: 06/09/17 10:26 Freq: Status: Active Protocol: Activity Type Activity Date Activity User E-Sign Co-Sign Detail Recorded Client Recorded Date Recorded By Document 06/09/17 10:26 RB [id number] 06/09/17 10:38 RB 06/09/17 10:26 Wound Center Nurse 1 [Ulcer Assessment Protocol: WC.WD.LOC] #1 Right Sacrum -Combined with other wound No -Current Size (cm) - Length 0.1 -Current Size (cm) - Width 0.1 -Current Size (cm) - Depth 0.1 -Total Square Cm 0.01 -Photo Taken Yes -Tunneling No -Undermining/Tunneling No -Circular Undermining No -Classification - Pressure Ulcer Stage 3 -Change in Wound Grade/Stage No Query Text:If change please identify the Stage/Grade in the comment (ie. S2 G3) -Exudate Amt Small (1-33%) -Exudate Type Serosanguineous -Wound Margin Distinct, Outline Attached -Granulation Amt Medium (34-66%) -Granulation Quality [place] -Slough/Fibrin Yes -Necrosis Amt Small (1-33%) -Necrotic Tissue Type Adherent Slough -Structure Exposed N/A -Texture (Fany-wound Skin Appearance) Assessed -Moisture (Fany-wound Skin Appearance Assessed ) -Color (Fany-wound Skin Appearance) Assessed -Temperature (Fany-wound Skin No Abnormality Appearance) (Pt Warm) -Tenderness on Palpation (Fany-wound No Skin Appearance) -Ulcer Cleansing Wound Cleanser -Foul Odor after Cleansing No -Anesthetic Used 5% Lidocaine Gel - Nurse 2 - General Ulcer CM Notes Start: 06/09/17 10:26 Freq: Status: Active Protocol: Activity Type Activity Date Activity User E-Sign Co-Sign Detail Recorded Client Recorded Date Recorded By Document 06/09/17 11:06 TM [id number] 06/09/17 11:09 06/09/17 11:06 Wound Center Nurse 2 [Procedure/Treatment] -Time 11:07 -Correct Patient Yes -Correct Side, Site, Position Yes -Correct Procedure Yes -Procedure Performed Yes -Post Debridement Size (cm) - Length 0 -Post Debridement Size (cm) - Width 0 -Post Debridement Size (cm) - Depth 0 -Total Square Cm 0 -Wound/Ulcer Outcome Healed- Epithelialized -Ulcer Cleansing Rinsed/ Irrigated with Saline -Foul Odor after Cleansing No -Bioengineered Tissue No -Cetacaine [place] No -Bleeding Controlled with NA -Other no debridement today sacrum healed -Treatment Response Procedure Tolerated Well [See Physician Procedure note for Specifics] Pain Scale: 0-10 Numeric [Pain] -Is Patient Pain Free? Yes Musculoskeletal: No Tenderness to Palpation of Joints or Extremities Lymphatic: No Cervical, Supraclavicular, or Inguinal Adenopathy Neurological: Cranial nerves II-XII grossly intact, Neuro grossly intact Psych/Mental Status: Normal Affect, Appropriate Debridement Note Post-Debridement Measurements/Treatment WC - Nurse 2 - General Ulcer CM Notes Start: 06/09/17 10:26 Freq: Status: Active Protocol: Activity Type Activity Date Activity User E-Sign Co-Sign Detail Recorded Client Recorded Date Recorded By Document 06/09/17 11:06 [id number] 06/09/17 11:09 06/09/17 11:06 Wound Center Nurse 2 #1 Right Sacrum -Time 11:07 -Correct Patient Yes -Correct Side, Site, Position Yes -Correct Procedure Yes -Procedure Performed Yes -Post Debridement Size (cm) - Length 0 -Post Debridement Size (cm) - Width 0 -Post Debridement Size (cm) - Depth 0 -Total Square Cm 0 -Wound/Ulcer Outcome Healed- Epithelialized -Ulcer Cleansing Rinsed/ Irrigated with Saline -Foul Odor after Cleansing No -Bioengineered Tissue No -Cetacaine [place] No -Bleeding Controlled with NA -Other no debridement today sacrum healed -Treatment Response Procedure Tolerated Well Pain Scale: 0-10 Numeric Is Patient Pain Free? Yes No debridement was completed today Assessment/Plan Assessment: Decubitus ulcer stage III coccyx resolved. Parkinson's. Malnutrition. Infected ulcer. Possibly autistic Plan: Discharge from the wound center follow-up as needed. Obtain Roho cushion and low air mattress
== END 2017-06-21 23:59 ==
LOC: WC 09:54
PROVIDERS: Visit Provider Nurse Practitioner
DX: L89.153 Pressure ulcer of sacral region, stage 3 (principal); F84.0 Autistic disorder; G20 Parkinson's disease; R27.0 Ataxia, unspecified; L08.9 Local infection of the skin and subcutaneous tissue, unspecified
CPT/HCPCS: 99212; G0463